=== PATIENT | male | born 1950 | race Caucasian/White ===

== ENCOUNTER 2020-09-25 13:56 | Outpatient (REF) | payer MEDICARE, SELFPAY ==
[2020-09-25 14:48] LABS: Estimated Average Glucose 200 mg/dL; Hemoglobin A1c % 8.6 %
== END 2020-09-25 13:57 | disposition home or self-care (01) ==
LOC: HO.LAB 13:56
PROVIDERS: PCP Internal Medicine; Visit Provider Internal Medicine
DX: E11.39 Type 2 diabetes mellitus with other diabetic ophthalmic complication (principal); E11.65 Type 2 diabetes mellitus with hyperglycemia
CPT/HCPCS: 36415; 83036

== ENCOUNTER 2021-03-05 11:25 | Outpatient (REF) | payer MEDICARE, SELFPAY ==
--- NOTE | ~2021-03-05 | XR_ITS ---
EXAMINATION: XR HAND, LEFT CLINICAL INFORMATION: Soft tissue disorder. COMPARISON: None TECHNIQUE: PA, lateral, and oblique views of the left hand. FINDINGS: No evidence for an acute bony erosion. There is some early degenerative changes at the DIP joint of the 5th and 2nd digit and some loss of joint space in the PIP joints. Vascular calcifications are noted. There is no evidence for an acute bony erosion. XR/XR hand LT min 3V IMPRESSION: Some degenerative changes distally are noted. No acute bony erosion.
[2021-03-05 12:12] LABS: MANUAL DIFF FLAG NO
[2021-03-05 12:21] LABS: Basophils Percent Auto 0.6 % (0-2); Eosinophils Absolute Auto 0.2 X10*3/uL (0.0-0.4); Eosinophils Percent Auto 2.4 % (0-4); Hematocrit 38.8 % (42-52); Imm Gran Abs Auto 0.02 X10*3/uL (0.00-0.03); Imm Gran Pct Auto 0.3 % (0.0-0.4); Lymphocytes Absolute Auto 1.5 X10*3/uL (1.2-4.9); Lymphocytes Percent Auto 21.9 % (20-40); Mean Corpuscular HGB Conc 33.5 g/dl (31.0-36.0); Mean Corpuscular Hemoglobin 29.9 pg (27.0-33.0); Mean Corpuscular Volume 89.2 fL (80-98); Mean Platelet Volume 9.5 fL (9.4-12.4); Monocytes Absolute Auto 0.6 X10*3/uL (0.1-1.2); Monocytes Percent Auto 8.2 % (2-11); Neutrophils Absolute Auto 4.5 X10*3/uL (2.0-8.3); Neutrophils Percent Auto 66.6 % (45-73); Platelet Count 204 X10*3/uL (160-400); Red Blood Count 4.35 X10*6/uL (4.60-5.80); Red Cell Distribution Width 12.4 % (11.0-16.0); White Blood Count 6.8 X10*3/uL (4.8-10.8)
[2021-03-05 12:41] LABS: Alanine Aminotransferase 21 U/L (0-40); Albumin Level 3.9 g/dL (3.5-5.0); Alkaline Phosphatase 96 U/L (39-117); Anion Gap 11 (12-20); Aspartate Amino Transferase 17 U/L (5-37); Bilirubin Total 0.4 mg/dL (0.0-1.0); Blood Urea Nitrogen 16 mg/dL (9-16); Calcium 8.6 mg/dL (8.4-10.2); Carbon Dioxide 24 mmol/L (22-29); Chloride 106 mmol/L (96-108); Estimated Glomerular Filt Rate > 60; Glucose Random 322 mg/dL (60-115); Potassium 4.4 mmol/L (3.3-5.1); Sodium 137 mmol/L (135-145); Total Protein 6.3 g/dL (6.5-8.0)
[2021-03-05 13:12] LABS: Erythrocyte Sedimentation Rate 2 MM/HR (0-15)
== END 2021-03-05 11:26 | disposition home or self-care (01) ==
LOC: HO.XRAY 11:25
PROVIDERS: PCP Internal Medicine; Visit Provider Internal Medicine
DX: M79.89 Other specified soft tissue disorders (principal)
CPT/HCPCS: 36415; 73130; 80053; 84550; 85025; 85652

== ENCOUNTER 2021-03-14 08:11 | Outpatient (REF) | payer MEDICARE, SELFPAY ==
--- NOTE | ~2021-03-14 | XR_ITS ---
EXAMINATION: AP WEIGHTBEARING VIEWS OF BOTH KNEES AND LATERAL AND SUNRISE VIEW LEFT KNEE CLINICAL INFORMATION: Pain COMPARISON: None TECHNIQUE: As above FINDINGS: Monckeberg calcifications suggesting diabetes. Joint spaces are relatively preserved. Minor diffuse spurring bilaterally. No effusion on the left. Pre-patella soft tissue swelling noted. XR/XR knee standing BI IMPRESSION: Mild osteoarthritis. Prepatellar soft tissue swelling on the left which may related to bursitis. Consider ultrasound for further assessment.
--- NOTE | ~2021-03-14 | XR_ITS ---
EXAMINATION: AP WEIGHTBEARING VIEWS OF BOTH KNEES AND LATERAL AND SUNRISE VIEW LEFT KNEE CLINICAL INFORMATION: Pain COMPARISON: None TECHNIQUE: As above FINDINGS: Monckeberg calcifications suggesting diabetes. Joint spaces are relatively preserved. Minor diffuse spurring bilaterally. No effusion on the left. Pre-patella soft tissue swelling noted. XR/XR knee LT 2V IMPRESSION: Mild osteoarthritis. Prepatellar soft tissue swelling on the left which may related to bursitis. Consider ultrasound for further assessment.
== END 2021-03-14 08:12 | disposition home or self-care (01) ==
LOC: HO.HOSX 08:11
PROVIDERS: Visit Provider Physician Assistant
DX: M25.562 Pain in left knee (principal); M71.22 Synovial cyst of popliteal space [Baker], left knee; M25.561 Pain in right knee
CPT/HCPCS: 73560; 73565; 99202

== ENCOUNTER 2023-06-11 14:08 | Outpatient (RCR) | payer MEDICARE, SELFPAY | END 2023-06-16 15:00 | disposition home or self-care (01) | LOC: HO.WCC 14:08 | PROVIDERS: Visit Provider Physician Assistant | DX: E11.621 Type 2 diabetes mellitus with foot ulcer (principal); L97.512 Non-pressure chronic ulcer of other part of right foot with fat layer exposed; L97.422 Non-pressure chronic ulcer of left heel and midfoot with fat layer exposed; T87.81 Dehiscence of amputation stump; E11.40 Type 2 diabetes mellitus with diabetic neuropathy, unspecified; E11.51 Type 2 diabetes mellitus with diabetic peripheral angiopathy without gangrene; I10 Essential (primary) hypertension; Z79.4 Long term (current) use of insulin; Z86.73 Personal history of transient ischemic attack (TIA), and cerebral infarction without residual deficits; Z89.411 Acquired absence of right great toe | CPT/HCPCS: 11042; 99213; 99214 ==

== ENCOUNTER → 2024-04-29 12:12 | Outpatient (RCR) | payer MEDICARE, SELFPAY | END | disposition home or self-care (01) | LOC: HO.WCC 01-09 13:59 | PROVIDERS: PCP Family Medicine; Visit Provider Physician Assistant | DX: E11.621 Type 2 diabetes mellitus with foot ulcer (principal); L97.512 Non-pressure chronic ulcer of other part of right foot with fat layer exposed; E11.51 Type 2 diabetes mellitus with diabetic peripheral angiopathy without gangrene; I10 Essential (primary) hypertension; Z79.4 Long term (current) use of insulin; Z86.718 Personal history of other venous thrombosis and embolism; Z86.73 Personal history of transient ischemic attack (TIA), and cerebral infarction without residual deficits | CPT/HCPCS: 11042; 99213 ==